=== PATIENT | female | born 1935 | race Caucasian/White ===

== ENCOUNTER 2022-03-20 16:25 | Inpatient (IN) ==
[2022-03-20] MEDS ORDERED: IOPAMIDOL 100 ML BOTTLE IV ONE (16:26)
[2022-03-20] MEDS ORDERED: ONDANSETRON 4 MG/2 ML VIAL IV ONE ×2 (16:42→18:43)
[2022-03-20] MEDS ORDERED: 0.9 % SODIUM CHLORIDE 500 ML IV ONE (17:00)
--- NOTE | 2022-03-20 17:08 | Emergency Department Note ---
Weakness HPI General Chief complaint: Weakness Stated complaint: weakness Time Seen by Provider: 03/20/22 16:42 Source: patient and EMS Mode of arrival: EMS Limitations: no limitations History of Present Illness HPI Narrative: Narrative: 86-year-old female with past medical history of pneumonia and as below presents with chest, nausea, weakness, fever and chills since 10 AM patient says she had her right tooth extracted yesterday. No headache dizziness abdominal pain vomiting diarrhea. Patient says she is a DNR and does not want any heroic measures like intubation or CPR only comfort measures. EKG showed sinus tachycardia, normal axis no ST changes. Her blood pressure is 97/69, pulse 122, temperature 97.3, O2 sat 97% on room air Related Data Home Medications Medication Instructions Recorded Confirmed ondansetron 4 mg disintegrating 4 mg PO Q6H PRN 03/05/22 03/05/22 tablet hydrocodone 5 mg-acetaminophen 325 1 tab PO TID PRN 03/14/22 mg tablet Previous Rx's Medication Instructions Recorded zolpidem 5 mg tablet (Ambien) 5 mg PO QHS PRN insomnia #30 tabs 02/21/22 metoclopramide HCl 10 mg tablet 10 mg PO Q6H PRN nausea and 03/05/22 vomiting #30 tabs polyethylene glycol 3350 17 4 g PO QDAY #119 grams 03/05/22 gram/dose oral powder (Miralax) Allergies Allergy/AdvReac Type Severity Reaction Status Date / Time nitrofurantoin Allergy Intermediate Nausea Verified 03/05/22 13:31 prochlorperazine Allergy Intermediate Hallucinati Verified 03/05/22 13:31 [From Compazine] ng Sulfa (Sulfonamide Allergy Intermediate Headache Verified 03/05/22 13:31 Antibiotics) crab Allergy Unknown Nausea, Verified 03/05/22 13:31 vomiting, headache phenazopyridine AdvReac Intermediate Nausea Verified 03/05/22 13:31 [From Pyridium] doxycycline AdvReac Unknown Nausea Verified 03/05/22 13:31 Review of Systems ROS ROS Narrative: Narrative: All systems ED: reviewed and negative except as stated. [facility] Narrative Patient History Narrative: Narrative: Medical/Surgical/Family History All Active Problems (Updated 03/20/22 @ 17:16 by Selvin Callahan MD) Need for comfort care (Acute) Constipation (Acute) Biliary colic (Acute) Chest pain (Acute) Breath shortness (Acute) Hypotension (Acute) Diverticulitis (Acute) Acute abdominal pain in right flank (Acute) Foot pain, bilateral (Chronic) Low back pain (Chronic) Abdominal pain (Chronic) Dilation of common bile duct (Chronic) Colitis (Chronic) Back pain (Chronic) Medicare annual wellness visit, initial (Chronic) Claudication of both lower extremities (Chronic) Bilateral leg pain (Chronic) Vertigo (Chronic) Sinusitis (Chronic) Allergic rhinitis (Chronic) Bilateral claudication of lower limb (Chronic) History of surgery (Chronic 09/16/17) Chronic maxillary sinusitis (Chronic) Thyroid disorder (Chronic) Intervertebral disc disorders with radiculopathy, lumbosacral region (Chronic) History of arthroscopy of left knee (Chronic) Left renal mass (Chronic) Hiatal hernia (Chronic) Hypercholesterolemia (Chronic) Persistent insomnia (Chronic) Fatigue (Chronic) Osteoarthritis, hip, bilateral (Chronic) Encounter to establish care (Chronic) Impacted cerumen of right ear (Chronic) History of bunionectomy (Chronic ~2005) History of hysterectomy (Chronic ~1966) History of cholecystectomy (Chronic ~1966) Osteoporosis (Chronic) Migraines (Chronic) Pneumonia (Chronic) Bronchitis (Chronic) Kidney stones (Chronic ~1999) Joint pain (Chronic) Insomnia (Chronic) High cholesterol (Chronic) Depression (Chronic) Muscle pain (Chronic) Arthritis (Chronic ~1999) Anxiety (Chronic) Acid reflux (Chronic ~2005) History of colonoscopy (Chronic) Urinary tract infection (Chronic) Medical History Acid reflux (~2005) Anxiety Arthritis (~1999) Bilateral leg pain Bronchitis Chronic maxillary sinusitis Claudication of both lower extremities Depression Fatigue Foot pain, bilateral Hiatal hernia High cholesterol Hypercholesterolemia Impacted cerumen of right ear Insomnia Intervertebral disc disorders with radiculopathy, lumbosacral region Joint pain Kidney stones (~1999) Left renal mass Low back pain Medicare annual wellness visit, initial Migraines Muscle pain Osteoarthritis, hip, bilateral Osteoporosis Persistent insomnia Pneumonia Thyroid disorder Surgical History History of arthroscopy of left knee History of bunionectomy (~2005) History of cataract surgery History of cholecystectomy (~1966) History of colonoscopy History of hysterectomy (~1967) ALVAREZ and BSO: endometeriosis History of surgery (09/16/17) Cystocele and rectocele repair. Transvaginal intraperitoneal bilateral uterosacral vaginal vault Family History Mother Arthritis Diabetes High blood pressure Sister Cancer Thyroid disease Brother Heart attack Father Migraines Stroke High blood pressure Other Thyroid cancer Social History Smoking Status: Never smoker Alcohol Intake Frequency: does not drink Substance Use: does not use Exam Narrative Narrative: Narrative: General Limitations: no limitations General appearance: Present alert and in no apparent distress Head Head: Present atraumatic and normocephalic Eye Eye: Present normal appearance Respiratory Respiratory: Present rales/crackles; Absent accessory muscle use Cardiovascular Cardiovascular: Present normal rhythm, tachycardia and normal heart sounds Adbominal Abdominal: Present soft and normal bowel sounds; Absent tenderness or organomegaly Extremities Extremities: Absent pedal edema, cyanosis or clubbing Neurological Neurological: Present alert and oriented X3 Course Course Course Narrative: CBC, CMP, troponin, CRP, lactic acid, chest x-ray were ordered. Normal saline IV 500 mg was given. DuoNeb was given. Patient has high troponin 1.02 but patient does not want cardiac cath or any other procedure.Care will be transferred to Dr. Younger as discussed Vital Signs Vital signs: Vital Signs Pulse Rate 117 H 03/20/22 16:36 Respiratory Rate 20 03/20/22 16:36 Blood Pressure 97/69 03/20/22 16:36 Pulse Oximetry (%) 98 03/20/22 16:36 Temperature 97.3 F 03/20/22 16:37 Pulse Rate 122 H 03/20/22 16:37 Respiratory Rate 16 03/20/22 16:37 Blood Pressure 97/69 03/20/22 16:37 Pulse Oximetry (%) 97 03/20/22 16:37 Oxygen Delivery Method 03/20/22 16:37 MDM MDM Narrative Medical decision making narrative: Narrative: Lab Data Result diagrams: 03/20/22 16:56 03/20/22 16:56 Labs: Lab Results 03/20/22 03/20/22 Range/Units 16:58 17:11 POC VBG pH 7.42 (7.32-7.42) POC VBG pCO2 at Temp 35.8 L (41-51) POC VBG pO2 26 (25-40) POC VBG HCO3 23.2 L (24-28) POC VBG Total CO2 24.0 L (25-29) POC Venous O2 Sat 49.0 (40-70) POC VBG Base Excess -1.0 (-2-2) VBG Lactic Acid 3.6 H (0.5-2) POC Troponin I 1.02 H (0.02-0.08) Discharge Plan Patient/Caregiver Discharge Instructions Pt seen by CONCRETE SAW OPERATOR/PA only: No Clinical Impression: Chest pain, Breath shortness, Hypotension Patient Disposition: Still a Patient Follow up with: Bert Ch MD [Primary Care Provider] - Prescriptions: No Action zolpidem [Ambien] 5 mg tablet 5 mg PO QHS PRN (Reason: insomnia) Qty: 30 2RF Rx Instructions: Must last 30 days. hydrocodone-acetaminophen 5-325 mg tablet 1 tab PO TID PRN ondansetron 4 mg tablet,disintegrating 4 mg PO Q6H PRN metoclopramide HCl 10 mg tablet 10 mg PO Q6H PRN (Reason: nausea and vomiting) Qty: 30 0RF polyethylene glycol 3350 [Miralax] 17 gram/dose powder 4 g PO QDAY Qty: 119 0RF Rx Instructions: Use in AM with good water/juice intake during the day.
[2022-03-20] MEDS ORDERED: IPRATROPIUM/ALBUTEROL 3 ML AMPUL.NEB NEB ONE (17:10)
[2022-03-20] MEDS ORDERED: 0.9 % SODIUM CHLORIDE 1,000 ML IV ONE (17:21)
--- NOTE | 2022-03-20 17:44 | XRay Report ---
CLINICAL INFORMATION: Chest pain COMPARISON: 05/04/2020 TECHNIQUE: PA and Lateral views FINDINGS: Small hiatal hernia again noted. The heart size, mediastinum and pulmonary vessels are, otherwise, unremarkable. Chronic bronchitis changes noted. No infiltrates or new pulmonary abnormalities. There are no effusions. The bones and soft tissues are within normal limits. IMPRESSION: Chronic bronchitis. No acute disease Small hiatal hernia. Interpreted and Authenticated by: David Hernandez 03/20/22
[2022-03-20 17:47] LABS: Basophils # (Auto) 0.05 K/mcL (0.00-0.30); Basophils % (Auto) 0.4 % (0.0-2.0); Eosinophils # (Auto) 0.29 K/mcL (0.00-0.70); Eosinophils % (Auto) 2.4 % (0.0-7.0); Hematocrit 47.6 % (34.1-44.9); Hemoglobin 15.5 g/dL (11.2-15.7); Lymphocytes # (Auto) 2.78 K/mcL (1.50-4.80); Lymphocytes % (Auto) 22.9 % (15.5-49.0); Mean Cell Volume 91.2 fL (80.0-100.0); Mean Corpuscular HGB Conc 32.6 g/dL (31.0-36.0); Mean Platelet Volume 11.1 fL (7.4-10.4); Monocytes # (Auto) 0.96 K/mcL (0.10-0.90); Monocytes % (Auto) 7.9 % (1.0-12.0); Platelet Count 196 K/mcL (140-440); RBC 5.22 M/mcL (3.59-5.38); Red Cell Distribution Width 13.2 % (11.5-14.5); WBC 12.1 K/mcL (4.5-11.0)
[2022-03-20 18:05] LABS: ALT/SGPT 13 U/L (<40); AST/SGOT 23 U/L (<32); Albumin 3.9 gm/dL (3.2-5.2); Albumin/Globulin Ratio 1.3 (1.0-2.3); Alkaline Phosphatase 103 U/L (39-117); Bilirubin,Total 0.5 mg/dL (0.1-1.0); Blood Urea Nitrogen 14 mg/dL (8-23); Calcium 9.5 mg/dL (8.6-10.4); Carbon Dioxide 22 mmol/L (22-30); Chloride 102 mmol/L (96-108); Glomerular Filtration Rate 51; Glucose 164 mg/dL (70-105)
[2022-03-20] MEDS ORDERED: PIPERACILLIN SODIUM/TAZOBACTAM 3.375 GM in DEXTROSE 5% IN WATER 50 ML IV ONE (18:07)
[2022-03-20] MEDS ORDERED: VANCOMYCIN 1,000 MG in 0.9 % SODIUM CHLORIDE 250 ML IV ONE (18:07)
[2022-03-20 20:05] LABS: Appearance,Urine Cloudy (Clear); Bilirubin,Urine Negative (Negative); Color,Urine Yellow; Culture Indicated,Urine No; Glucose,Urine (UA) Negative (Negative); Ketones,Urine 40 mg/dL mg/dL (Negative); Leukocyte Esterase,Urine Trace /uL (Negative); Mucus,Urine MANY /hpf; Nitrate,Urine Negative (Negative); PH,Urine 5.5 (5.0-9.0); Specific Gravity,Urine >= 1.030 (1.000-1.035); Urine Blood Large ery/mcL (Negative); Urine RBC 9 /hpf (0-3); Urine Squamous Epithelial Cell 8 /hpf (0-4); Urine WBC 38 /hpf (0-4); Urobilinogen,Urine Normal
[2022-03-20] MEDS ORDERED: 0.9 % SODIUM CHLORIDE 1,000 ML IV SCH (21:15)
--- NOTE | 2022-03-20 21:39 | Emergency Department Note ---
Course Course Course Narrative: Patient was signed out to me at 1700 pending further work-up. Patient evaluated for weakness. She complains of abdominal pain and shortness of breath. Initial labs were unremarkable with exception of leukocytosis. Patient was maintaining adequate oxygen saturation on room air. She was tachycardic. Initially she was soft on her blood pressure which did improve with IV fluids. Lactic acid was elevated at greater than 3. She was bolused 30 mL/kg of fluids. Repeat lactate did improve but was still elevated. Blood cultures were obtained the patient was given IV antibiotics to include vancomycin and Zosyn. UA was unremarkable. Patient's D-dimer was elevated. A CTA of the chest and a CT of the abdomen pelvis with contrast was ordered. CTA of the chest showed that patient had large volume of pulmonary emboli including saddle thromboembolus in the main pulmonary arteries bilaterally and embolus extending into all lobar pulmonary arteries with extension into many segmental branches bilaterally. This was discussed with patient and she states that she does not want to be transferred out to a facility as she does not want any intervention. She was advised that without transfer she will most likely as we do not have the services at our facility such as pulmonology. Patient states that she would like to be placed on hospice if possible. Offered patient heparin drip but she refused stating she does not want anything done and just wants to be made comfort care and transition to hospice. Patient is tachycardic but she is maintaining adequate oxygen saturation greater than 92% on room air without any difficulty breathing. CT abdomen pelvis obtained with image reviewed myself no acute intra-abdominal findings. Case was discussed with hospitalist, Dr. Carrion, who was agreed to admit the patient for comfort care and will consult hospice tomorrow if patient makes it through the night. Consultations Consultation #1: Case discussed with hospitalist, Dr. Carrion, who is agreed to admit the patient for comfort care. He want to make sure that patient was aware that we do not have the services here to treat her and that she will most likely during this visit. This was discussed with patient and she clearly understands that we do not have appropriate services here but she still wishes to stay here and be made comfort care with hopes to being transition to hospice. Time: 22:28 Vital Signs Vital signs: Vital Signs Pulse Rate 117 H 03/20/22 16:36 Respiratory Rate 20 03/20/22 16:36 Blood Pressure 97/69 03/20/22 16:36 Pulse Oximetry (%) 98 03/20/22 16:36 Temperature 97.3 F 03/20/22 16:37 Pulse Rate 114 H 03/20/22 20:31 Respiratory Rate 18 03/20/22 20:31 Blood Pressure 113/66 03/20/22 20:31 Pulse Oximetry (%) 94 03/20/22 20:31 Oxygen Delivery Method 03/20/22 17:36 MDM MDM Narrative Medical decision making narrative: Narrative: Differential Diagnosis Differential Diagnosis: Sepsis, intra-abdominal infection, pneumonia, PE Medical Records Medical records reviewed: Yes I reviewed the patient's medical records. Lab Data Lab results reviewed: Yes I reviewed the patient's lab results. Result diagrams: 03/20/22 16:56 03/20/22 16:56 Labs: Lab Results 03/20/22 03/20/22 03/20/22 Range/Units 16:54 16:56 16:56 WBC 12.1 H (4.5-11.0) K/mcL RBC 5.22 (3.59-5.38) M/mcL Hgb 15.5 (11.2-15.7) g/dL Hct 47.6 H (34.1-44.9) % MCV 91.2 (80.0-100.0) fL MCH 29.7 (26.0-34.0) pg MCHC 32.6 (31.0-36.0) g/dL RDW 13.2 (11.5-14.5) % Plt Count 196 (140-440) K/mcL MPV 11.1 H (7.4-10.4) fL Immature Gran % (Auto) 0.4 (0.0-0.5) % Neut % (Auto) 66.0 (38.0-78.0) % Lymph % (Auto) 22.9 (15.5-49.0) % [place] % (Auto) 7.9 (1.0-12.0) % Eos % (Auto) 2.4 (0.0-7.0) % Baso % (Auto) 0.4 (0.0-2.0) % Lymph # (Auto) 2.78 (1.50-4.80) K/mcL [place] # (Auto) 0.96 H (0.10-0.90) K/mcL Eos # (Auto) 0.29 (0.00-0.70) K/mcL Baso # (Auto) 0.05 (0.00-0.30) K/mcL Immature Gran # 0.05 (0.00-0.05) K/mcl Absolute Neutrophils 8.01 H (1.80-8.00) K/mcL D-Dimer > 20.0 H (0.27-0.5) ug/mL POC VBG pH (7.32-7.42) POC VBG pCO2 at Temp (41-51) POC VBG pO2 (25-40) POC VBG HCO3 (24-28) POC VBG Total CO2 (25-29) POC Venous O2 Sat (40-70) POC VBG Base Excess (-2-2) VBG Lactic Acid (0.5-2) Sodium 139 (133-145) mmol/L Potassium 4.1 (3.3-5.1) mmol/L Chloride 102 (96-108) mmol/L Carbon Dioxide 22 (22-30) mmol/L Anion Gap 15.0 (8.0-16.0) BUN 14 (8-23) mg/dL Creatinine 1.0 (0.6-1.1) mg/dL GFR Calculation 51 Glucose 164 H (70-105) mg/dL Calcium 9.5 (8.6-10.4) mg/dL Total Bilirubin 0.5 (0.1-1.0) mg/dL AST 23 (<32) U/L ALT 13 (<40) U/L Alkaline Phosphatase 103 (39-117) U/L C-Reactive Protein (0.03-0.80) mg/dL Total Protein 6.9 (5.9-8.4) gm/dL Albumin 3.9 (3.2-5.2) gm/dL Globulin 3.0 (2.2-3.7) gm/dL Albumin/Globulin Ratio 1.3 (1.0-2.3) Lipase 34 (7-60) U/L Urine Color Urine Appearance (Clear) Urine pH (5.0-9.0) Ur Specific [place] (1.000-1.035) Urine Protein (Negative) mg/dL Urine Glucose (UA) (Negative) mg/dL Urine Ketones (Negative) mg/dL Urine Occult Blood (Negative) lico/mcL Urine Nitrate (Negative) Urine Bilirubin (Negative) mg/dL Urine Urobilinogen mg/dL Ur Leukocyte Esterase (Negative) /uL Urine RBC (0-3) /hpf Urine WBC (0-4) /hpf Ur Squamous Epith Cells (0-4) /hpf Urine Bacteria (0) /hpf Urine Mucus (None) /hpf Ur Culture Indicated? POC Troponin I (0.02-0.08) 03/20/22 03/20/22 03/20/22 Range/Units 16:58 17:10 17:11 WBC (4.5-11.0) K/mcL RBC (3.59-5.38) M/mcL Hgb (11.2-15.7) g/dL Hct (34.1-44.9) % MCV (80.0-100.0) fL MCH (26.0-34.0) pg MCHC (31.0-36.0) g/dL RDW (11.5-14.5) % Plt Count (140-440) K/mcL MPV (7.4-10.4) fL Immature Gran % (Auto) (0.0-0.5) % Neut % (Auto) (38.0-78.0) % Lymph % (Auto) (15.5-49.0) % [place] % (Auto) (1.0-12.0) % Eos % (Auto) (0.0-7.0) % Baso % (Auto) (0.0-2.0) % Lymph # (Auto) (1.50-4.80) K/mcL [place] # (Auto) (0.10-0.90) K/mcL Eos # (Auto) (0.00-0.70) K/mcL Baso # (Auto) (0.00-0.30) K/mcL Immature Gran # (0.00-0.05) K/mcl Absolute Neutrophils (1.80-8.00) K/mcL D-Dimer (0.27-0.5) ug/mL POC VBG pH 7.42 (7.32-7.42) POC VBG pCO2 at Temp 35.8 L (41-51) POC VBG pO2 26 (25-40) POC VBG HCO3 23.2 L (24-28) POC VBG Total CO2 24.0 L (25-29) POC Venous O2 Sat 49.0 (40-70) POC VBG Base Excess -1.0 (-2-2) VBG Lactic Acid 3.6 H (0.5-2) Sodium (133-145) mmol/L Potassium (3.3-5.1) mmol/L Chloride (96-108) mmol/L Carbon Dioxide (22-30) mmol/L Anion Gap (8.0-16.0) BUN (8-23) mg/dL Creatinine (0.6-1.1) mg/dL GFR Calculation Glucose (70-105) mg/dL Calcium (8.6-10.4) mg/dL Total Bilirubin (0.1-1.0) mg/dL AST (<32) U/L ALT (<40) U/L Alkaline Phosphatase (39-117) U/L C-Reactive Protein (0.03-0.80) mg/dL Total Protein (5.9-8.4) gm/dL Albumin (3.2-5.2) gm/dL Globulin (2.2-3.7) gm/dL Albumin/Globulin Ratio (1.0-2.3) Lipase (7-60) U/L Urine Color Urine Appearance (Clear) Urine pH (5.0-9.0) Ur Specific [place] (1.000-1.035) Urine Protein (Negative) mg/dL Urine Glucose (UA) (Negative) mg/dL Urine Ketones (Negative) mg/dL Urine Occult Blood (Negative) lico/mcL Urine Nitrate (Negative) Urine Bilirubin (Negative) mg/dL Urine Urobilinogen mg/dL Ur Leukocyte Esterase (Negative) /uL Urine RBC (0-3) /hpf Urine WBC (0-4) /hpf Ur Squamous Epith Cells (0-4) /hpf Urine Bacteria (0) /hpf Urine Mucus (None) /hpf Ur Culture Indicated? POC Troponin I 1.02 H 0.91 H (0.02-0.08) 03/20/22 03/20/22 03/20/22 Range/Units 17:15 19:00 20:54 WBC (4.5-11.0) K/mcL RBC (3.59-5.38) M/mcL Hgb (11.2-15.7) g/dL Hct (34.1-44.9) % MCV (80.0-100.0) fL MCH (26.0-34.0) pg MCHC (31.0-36.0) g/dL RDW (11.5-14.5) % Plt Count (140-440) K/mcL MPV (7.4-10.4) fL Immature Gran % (Auto) (0.0-0.5) % Neut % (Auto) (38.0-78.0) % Lymph % (Auto) (15.5-49.0) % [place] % (Auto) (1.0-12.0) % Eos % (Auto) (0.0-7.0) % Baso % (Auto) (0.0-2.0) % Lymph # (Auto) (1.50-4.80) K/mcL [place] # (Auto) (0.10-0.90) K/mcL Eos # (Auto) (0.00-0.70) K/mcL Baso # (Auto) (0.00-0.30) K/mcL Immature Gran # (0.00-0.05) K/mcl Absolute Neutrophils (1.80-8.00) K/mcL D-Dimer (0.27-0.5) ug/mL POC VBG pH 7.36 (7.32-7.42) POC VBG pCO2 at Temp 35.0 L (41-51) POC VBG pO2 23 L (25-40) POC VBG HCO3 19.7 L (24-28) POC VBG Total CO2 21.0 L (25-29) POC Venous O2 Sat 37.0 L (40-70) POC VBG Base Excess -6.0 L (-2-2) VBG Lactic Acid 2.8 H (0.5-2) Sodium (133-145) mmol/L Potassium (3.3-5.1) mmol/L Chloride (96-108) mmol/L Carbon Dioxide (22-30) mmol/L Anion Gap (8.0-16.0) BUN (8-23) mg/dL Creatinine (0.6-1.1) mg/dL GFR Calculation Glucose (70-105) mg/dL Calcium (8.6-10.4) mg/dL Total Bilirubin (0.1-1.0) mg/dL AST (<32) U/L ALT (<40) U/L Alkaline Phosphatase (39-117) U/L C-Reactive Protein 3.20 H (0.03-0.80) mg/dL Total Protein (5.9-8.4) gm/dL Albumin (3.2-5.2) gm/dL Globulin (2.2-3.7) gm/dL Albumin/Globulin Ratio (1.0-2.3) Lipase (7-60) U/L Urine Color Yellow Urine Appearance Cloudy A (Clear) Urine pH 5.5 (5.0-9.0) Ur Specific [place] >= 1.030 (1.000-1.035) Urine Protein 100 mg/dl A (Negative) mg/dL Urine Glucose (UA) Negative (Negative) mg/dL Urine Ketones 40 mg/dl A (Negative) mg/dL Urine Occult Blood Large A (Negative) lico/mcL Urine Nitrate Negative (Negative) Urine Bilirubin Negative (Negative) mg/dL Urine Urobilinogen Normal mg/dL Ur Leukocyte Esterase Trace A (Negative) /uL Urine RBC 9 H (0-3) /hpf Urine WBC 38 H (0-4) /hpf Ur Squamous Epith Cells 8 H (0-4) /hpf Urine Bacteria None (0) /hpf Urine Mucus Many A (None) /hpf Ur Culture Indicated? No POC Troponin I (0.02-0.08) ED POC Tests ED POC Tests: NHI - Influenza A Negative NHI - Influenza B Negative NHI - SARS Antigen Negative Radiology Data Radiology results reviewed: Yes I reviewed the patient's radiology results. Radiology results narrative: CT of the chest obtained with image reviewed myself which shows bilateral saddle thromboemboli in the main pulmonary arteries Discharge Plan Patient/Caregiver Discharge Instructions Pt seen by AIR QUALITY MANAGER/PA only: No Clinical Impression: Acute saddle pulmonary embolism, Chest pain, Breath shortness, Hypotension, Elevated troponin Patient Disposition: Xfer As Inpt ([facility]) Condition: Critical Follow up with: Bert Ch MD [Primary Care Provider] - Prescriptions: No Action zolpidem [Ambien] 5 mg tablet 5 mg PO QHS PRN (Reason: insomnia) Qty: 30 2RF Rx Instructions: Must last 30 days. hydrocodone-acetaminophen 5-325 mg tablet 1 tab PO TID PRN ondansetron 4 mg tablet,disintegrating 4 mg PO Q6H PRN metoclopramide HCl 10 mg tablet 10 mg PO Q6H PRN (Reason: nausea and vomiting) Qty: 30 0RF polyethylene glycol 3350 [Miralax] 17 gram/dose powder 4 g PO QDAY Qty: 119 0RF Rx Instructions: Use in AM with good water/juice intake during the day.
--- NOTE | 2022-03-20 22:34 | Event Note ---
Event Note Event Note: I discussed the case over the phone with Dr. Younger. Pt presented to the ED with chest pain and found to have pulmonary saddle emoblus with immense extension b/l. She expressed her wishes to the ED physician that she does not want to be transferred or to receive treatment. She wishes to be made comfort care and understands this will likely cause her passing.
[2022-03-20] MEDS ORDERED: ONDANSETRON 4 MG ODT TABLET SL PRN (23:34)
[2022-03-20] MEDS ORDERED: morphine 4 MG/ML VIAL NEB PRN (23:34)
[2022-03-20] MEDS: morphine 4 MG/ML VIAL IV PRN (23:46)
[2022-03-20] MEDS ORDERED: morphine 4 MG/ML VIAL ONE (23:52)
[2022-03-20] MEDS ORDERED: LORazepam 2 MG/ML VIAL ONE (23:53)
[2022-03-20] MEDS ORDERED: ONDANSETRON 4 MG/2 ML VIAL ONE (23:55)
[2022-03-21] MEDS ORDERED: ONDANSETRON 4 MG ODT TABLET ONE (00:02)
[2022-03-21] MEDS: LORazepam 2 MG/ML VIAL IV PRN ×5 (00:37→06:24)
[2022-03-21] MEDS: ONDANSETRON 4 MG/2 ML VIAL IV PRN ×2 (00:38→04:06)
[2022-03-21] MEDS: morphine 4 MG/ML VIAL IV PRN ×3 (04:05→06:22)
[2022-03-21] MEDS ORDERED: ONDANSETRON 4 MG/2 ML VIAL ONE (04:13)
[2022-03-21] MEDS ORDERED: morphine 4 MG/ML VIAL ONE (04:13)
[2022-03-21] MEDS ORDERED: LORazepam 2 MG/ML VIAL ONE (04:22)
--- NOTE | 2022-03-21 04:46 | Cat Scan Report ---
CLINICAL INFORMATION: Elevated d-dimer and shortness of breath COMPARISON: None. TECHNIQUE: 80ml of Isovue-370 were injected intravenously. Using SmartPrep to maximize pulmonary artery opacification, .625mm helical slices were obtained from the lung apices through the lung bases. Following reconstruction, 2.5 mm sagittal, coronal, and axial reformations were processed. The exam was reviewed at mediastinal, lung, and bone windows. The exam was performed using radiation dose optimization techniques including, but not limited to, automated exposure control, adjustment of the mA and/or kV according to patient size and use of iterative reconstruction technique. FINDINGS: Pulmonary parenchymal windows show mild chronic bronchitis changes featuring elevated lung volumes and wall thickening/dilatation of bronchi. Scattered scarring periphery of both mid and lower lungs appreciated. No infiltrates. Pleural spaces are unremarkable-no effusions. Mediastinal windows show the heart is mildly enlarged with asymmetric enlargement of the right atrium and ventricle compatible with elevated right heart pressures. There is a relatively small saddle embolus at the main pulmonary artery bifurcation with extension into right and left pulmonary arteries. The left side, embolus fills the left upper lobe, anterior segment left upper lobe, left lower lobe and posterior basilar segment left lower lobe pulmonary arteries. On the right side, embolus extends to the orifice of the right upper lobe pulmonary artery resulting in complete occlusion. It also subtotally occludes right middle lobe artery orifice and the right lower lobe pulmonary artery. There is extension into the right anterior basilar medial and posterior basilar segments. Moderate hiatal hernia appreciated. There is no adenopathy in the mediastinal, hilar or axillary regions. Asymmetric enlargement of the right inferior thyroid lobe likely represents a benign adenoma. Bones and soft tissues the chest wall are unremarkable. IMPRESSION: 1. Extensive pulmonary emboli. Mild enlargement of the central pulmonary arteries with asymmetric enlargement of the right atrium and ventricle is compatible with associated elevated pulmonary artery pressures related to the embolic load. 2. Chronic bronchitis. 3. Moderate hiatal hernia Interpreted and Authenticated by: David Hernandez 03/21/22
--- NOTE | 2022-03-21 04:51 | Cat Scan Report ---
CLINICAL INFORMATION: Abdominal pain and nausea COMPARISON: Abdomen and pelvic CTs 08/26/2020 and 12/04/2021 TECHNIQUE: Following enteric contrast, 80 cc of Isovue-370 were injected intravenously, and 60 seconds later, 0.625 mm helical slices were obtained from the mid heart through the subtrochanteric regions. Following reconstruction, 2.5 mm sagittal, coronal and axial reformatted images were processed and reviewed at bone, lung and soft tissue windows. Five minutes later, 0.625 mm helical slices were obtained from the mid heart through the kidneys and viewed at soft tissue windows.The exam was performed using radiation dose optimization techniques including, but not limited to, automated exposure control, adjustment of the mA and/or kV according to patient size and use of iterative reconstruction technique. FINDINGS: The lung bases show chronic bronchitis with dilatation of bronchi and mild wall thickening. Scattered fibrosis appreciated. No effusions. Moderate hiatal hernia is stable. Heart is mildly enlarged with asymmetric enlargement of the right atrium and ventricle due to massive pulmonary emboli-please see chest CT report. Abdominal images were obtained in arterial phase. The gallbladder is surgically absent. Moderate dilatation of the intrahepatic, common hepatic and common bile ducts the common bile duct spanning 12 mm this is unchanged from the comparison exam from 08/26/2020 and compatible post cholecystectomy papillary stenosis.. There is air in the nondependent left hepatic ducts from prior papillotomy. The pancreas, both adrenal glands, spleen and aorta are normal in size configuration and attenuation without focal lesion. A 2 cm cyst superior pole left kidney is unchanged-no significant renal abnormality. There is no free air, free fluid or adenopathy Pelvic images show hysterectomy/ oophorectomy changes. The urinary bladder is normal. Multiple sigmoid diverticula appreciated but no evidence of diverticulitis. The remainder of the large bowel, appendix region, small bowel and stomach are grossly normal. Bone windows show severe bilateral hip degeneration. No focal osseous lesion. IMPRESSION: 1. No acute intra-abdominal/intrapelvic disease. 2. 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 No change 3. Sigmoid diverticulosis, but no evidence of diverticulitis. 4. Moderate hiatal hernia 5. Severe bilateral hip degeneration Interpreted and Authenticated by: David Hernandez 03/21/22
[2022-03-21] MEDS ORDERED: 0.9 % SODIUM CHLORIDE 10 ML SYRINGE IV SCH (06:00)
--- NOTE | 2022-03-21 07:21 | Discharge Summary ---
Discharge Provider Provider IMPORTANT FOLLOW-UP INFORMATION FOR PCP: Patient information: Note initiated : 03/21/22 at 7:18 am Service Date, if different from initiated Date: [] Patient: Nettie Miller 86 y/o F admitted on 03/20/22 for weakness. Chief Complaint: [] Date of admission: 03/20/22 23:22 Primary care physician: Bert Ch MD Consults: 03/20/22 22:09 Consult to Physician [CONS] Stat Comment: Consulting Provider: Venkat Carrion Reason For Exam: Physician to Consult COURSE Hospital Course Hospital course: I discussed the case over the phone with Dr. Younger. Pt presented to the ED with chest pain and found to have pulmonary saddle emoblus with immense extension b/l. She expressed her wishes to the ED physician that she does not want to be transferred or to receive treatment. She wishes to be made comfort care and understands this will likely cause her passing. per ED report: "Course Narrative: Patient was signed out to me at 1700 pending further work-up. Patient evaluated for weakness. She complains of abdominal pain and shortness of breath. Initial labs were unremarkable with exception of leukocytosis. Patient was maintaining adequate oxygen saturation on room air. She was tachycardic. Initially she was soft on her blood pressure which did improve with IV fluids. Lactic acid was elevated at greater than 3. She was bolused 30 mL/kg of fluids. Repeat lactate did improve but was still elevated. Blood cultures were obtained the patient was given IV antibiotics to include vancomycin and Zosyn. UA was unremarkable. Patient's D-dimer was elevated. A CTA of the chest and a CT of the abdomen pelvis with contrast was ordered. CTA of the chest showed that patient had large volume of pulmonary emboli including saddle thromboembolu s in the main pulmonary arteries bilaterally and embolus extending into all lobar pulmonary arteries with extension into many segmental branches bilaterally.This was discussed with patient and she states that she does not want to be transferred out to a facility as she does not want any intervention. She was advised that without transfer she will most likely as we do not have the services at our facility such as pulmonology. Patient states that she would like to be placed on hospice if possible. Offered patient heparin drip but she refused stating she does not want anything done and just wants to be made comfort care and transition to hospice.Patient is tachycardic but she is maintaining adequate oxygen saturation greater than 92% on room air without any difficulty breathing. CT abdomen pelvis obtained with image reviewed myself no acute intra-abdominal findings. Case was discussed with hospitalist, Dr. Carrion, who was agreed to admit the patient for comfort care and will consult hospice tomorrow if patient makes it through the night. Consultations Consultation #1: Case discussed with hospitalist, Dr. Carrion, who is agreed to admit the patient for comfort care. He want to make sure that patient was aware that we do not have the services here to treat her and that she will most likely during this visit. This was discussed with patient and she clearly understands that we do not have appropriate services here but she still wishes to stay here and be made comfort care with hopes to being transition to hospice. Time: 22:28" she at 0710 on 03/21/2022. Assessment: Massive Pulmonary emboli b/l, including saddle embolus Discharge diagnosis: Massive pulmonary embolus Time Spent with Patient Time attestation: Total time spent providing and/or coordinating discharge services: Time spent: Less than 30 minutes EXAM Constitutional Vitals: Temp Pulse Resp BP Pulse Ox O2 Del Method 98.0 F 92 H 24 H 126/80 95 03/20/22 23:30 03/21/22 06:00 03/21/22 06:00 03/20/22 23:30 03/20/22 23:30 03/20/22 23:30 Discharge Data Data Completed and Pending Labs on day of discharge: Labs from last 24 hours 03/20/22 03/20/22 03/20/22 20:54 19:00 17:15 WBC RBC Hgb Hct MCV MCH MCHC RDW Plt Count MPV Immature Gran % (Auto) Neut % (Auto) Lymph % (Auto) Monroe % (Auto) Eos % (Auto) Baso % (Auto) Lymph # (Auto) Monroe # (Auto) Eos # (Auto) Baso # (Auto) Immature Gran # Absolute Neutrophils D-Dimer POC VBG pH 7.36 POC VBG pCO2 at Temp 35.0 L POC VBG pO2 23 L POC VBG HCO3 19.7 L POC VBG Total CO2 21.0 L POC Venous O2 Sat 37.0 L POC VBG Base Excess -6.0 L VBG Lactic Acid 2.8 H Sodium Potassium Chloride Carbon Dioxide Anion Gap BUN Creatinine GFR Calculation Glucose Calcium Total Bilirubin AST ALT Alkaline Phosphatase C-Reactive Protein 3.20 H Total Protein Albumin Globulin Albumin/Globulin Ratio Lipase Urine Color Yellow Urine Appearance Cloudy A Urine pH 5.5 Ur Specific Z[place] >= 1.030 Urine Protein 100 mg/dl A Urine Glucose (UA) Negative Urine Ketones 40 mg/dl A Urine Occult Blood Large A Urine Nitrate Negative Urine Bilirubin Negative Urine Urobilinogen Normal Ur Leukocyte Esterase Trace A Urine RBC 9 H Urine WBC 38 H Ur Squamous Epith Cells 8 H Urine Bacteria None Urine Mucus Many A Ur Culture Indicated? No POC Troponin I 03/20/22 03/20/22 03/20/22 17:11 17:10 16:58 WBC RBC Hgb Hct MCV MCH MCHC RDW Plt Count MPV Immature Gran % (Auto) Neut % (Auto) Lymph % (Auto) Monroe % (Auto) Eos % (Auto) Baso % (Auto) Lymph # (Auto) Monroe # (Auto) Eos # (Auto) Baso # (Auto) Immature Gran # Absolute Neutrophils D-Dimer POC VBG pH 7.42 POC VBG pCO2 at Temp 35.8 L POC VBG pO2 26 POC VBG HCO3 23.2 L POC VBG Total CO2 24.0 L POC Venous O2 Sat 49.0 POC VBG Base Excess -1.0 VBG Lactic Acid 3.6 H Sodium Potassium Chloride Carbon Dioxide Anion Gap BUN Creatinine GFR Calculation Glucose Calcium Total Bilirubin AST ALT Alkaline Phosphatase C-Reactive Protein Total Protein Albumin Globulin Albumin/Globulin Ratio Lipase Urine Color Urine Appearance Urine pH Ur Specific Zuni Urine Protein Urine Glucose (UA) Urine Ketones Urine Occult Blood Urine Nitrate Urine Bilirubin Urine Urobilinogen Ur Leukocyte Esterase Urine RBC Urine WBC Ur Squamous Epith Cells Urine Bacteria Urine Mucus Ur Culture Indicated? POC Troponin I 0.91 H 1.02 H 03/20/22 03/20/22 03/20/22 16:56 16:56 16:54 WBC 12.1 H RBC 5.22 Hgb 15.5 Hct 47.6 H MCV 91.2 MCH 29.7 MCHC 32.6 RDW 13.2 Plt Count 196 MPV 11.1 H Immature Gran % (Auto) 0.4 Neut % (Auto) 66.0 Lymph % (Auto) 22.9 Monroe % (Auto) 7.9 Eos % (Auto) 2.4 Baso % (Auto) 0.4 Lymph # (Auto) 2.78 Monroe # (Auto) 0.96 H Eos # (Auto) 0.29 Baso # (Auto) 0.05 Immature Gran # 0.05 Absolute Neutrophils 8.01 H D-Dimer > 20.0 H POC VBG pH POC VBG pCO2 at Temp POC VBG pO2 POC VBG HCO3 POC VBG Total CO2 POC Venous O2 Sat POC VBG Base Excess VBG Lactic Acid Sodium 139 Potassium 4.1 Chloride 102 Carbon Dioxide 22 Anion Gap 15.0 BUN 14 Creatinine 1.0 GFR Calculation 51 Glucose 164 H Calcium 9.5 Total Bilirubin 0.5 AST 23 ALT 13 Alkaline Phosphatase 103 C-Reactive Protein Total Protein 6.9 Albumin 3.9 Globulin 3.0 Albumin/Globulin Ratio 1.3 Lipase 34 Urine Color Urine Appearance Urine pH Ur Specific Zuni Urine Protein Urine Glucose (UA) Urine Ketones Urine Occult Blood Urine Nitrate Urine Bilirubin Urine Urobilinogen Ur Leukocyte Esterase Urine RBC Urine WBC Ur Squamous Epith Cells Urine Bacteria Urine Mucus Ur Culture Indicated? POC Troponin I Discharge Plan Patient/Caregiver Discharge Instructions Prescriptions: No Action zolpidem [Ambien] 5 mg tablet 5 mg PO QHS PRN (Reason: insomnia) Qty: 30 2RF Rx Instructions: Must last 30 days. hydrocodone-acetaminophen 5-325 mg tablet 1 tab PO TID PRN (Reason: Pain) polyethylene glycol 3350 [Miralax] 17 gram/dose powder 4 g PO QDAY Qty: 119 0RF Rx Instructions: Use in AM with good water/juice intake during the day. Follow Up Plan Follow up with: Bert Ch MD [Primary Care Provider] - Prognosis: Critical QUALITY VTE Deep Vein Thrombosis/Pulmonary Embolism Present on Admission: Yes
[2022-03-21] MEDS ORDERED: DOCUSATE SODIUM 100 MG CAPSULE PO SCH (09:00)
--- NOTE | 2022-03-22 08:03 | EKG ---
[facility] Test Date: 2022-03-20 Pat Name: Nettie Miller Department: ED Room: Gender: Female Manager Benefit: TYLOR : 1935 Requested By: Selvin Callahan Order Number: [id number] Reading MD: Rodriguez Pena Measurements Intervals Amo Rate: 120 P: 81 GA: 144 QRS: 82 QRSD: 111 T: 28 QT: 341 QTc: 482 Interpretive Statements Sinus tachycardia Low voltage with right axis deviation Electronically Signed On 03-22-2022 8:02:11 PDT by Rodriguez Pena /[id number]
== END 2022-03-21 10:37 | disposition expired | DRG 951 ==
LOC: ED 16:25 → MEDSUR 23:22
PROVIDERS: ADMIT Internal Medicine; ATTEND Internal Medicine